=== PATIENT | female | born 2000 | race Hispanic/Latino ===

== ENCOUNTER 2024-02-11 17:03 | Inpatient (IN) | payer BC ==
[2024-02-11 18:24] LABS: Hematocrit 39.9 % (36.0-47.0); Hemoglobin 12.7 g/dL (12.0-16.0); Mean Corpuscular HGB CONC 31.8 g/dL (32.0-36.0); Mean Corpuscular Hemoglobin 25.5 pg (27.0-31.0); Mean Corpuscular Volume 80.1 fL (78.0-98.0); Mean Platelet Volume 11.5 fL (7.4-10.4); Platelet Count 192 10x3/uL (130-400); RBC Distribution Width 16.4 % (11.5-14.5); Red Blood Cell (RBC) Count 4.98 mill/uL (4.20-5.40)
[2024-02-11 18:27] LABS: BHCG - Serum Negative (NEGATIVE); Pregs Control Background? CLEAR/WHITE (CLR/WHITE); Pregs Control Bar Appear? YES (CONTROL BAR)
[2024-02-11 18:33] LABS: ALT (SGPT) 475 U/L (8-55); AST (SGOT) 296 U/L (5-34); Albumin 3.4 g/dL (3.5-5.0); Alkaline Phosphatase 425 U/L (40-110); Anion Gap 14 mmol/L (10-20); BUN (Urea Nitrogen) 5 mg/dL (7.0-18.7); Bilirubin, Total 3.4 mg/dL (0.2-1.2); Calc. Creatinine Clearance 0 mL/min (70-130); Calcium 9.6 mg/dL (7.8-10.44); Carbon Dioxide 21 mmol/L (22-29); Chloride 104 mmol/L (98-107); Estimated GFR 114; Globulin 4.5 g/dL (2.4-3.5); Glucose 95 mg/dL (70-105); Lipase 36 U/L (8-78); Potassium 3.8 mmol/L (3.5-5.1); Protein, Total 7.9 g/dL (6.0-8.3); Sodium 135 mmol/L (136-145)
[2024-02-11 18:42] LABS: Eosinophils 1 % (0-10); Hypochromia SLIGHT = 6-15 cells HPF (0-5); Lymphocytes 36 % (21-51); Monocytes 15 % (0-10); Neutrophil 18 % (42-75); Ovalocytes SLIGHT = 2-5 cells HPF (0-1); Platelet Adequacy Comment Platelets Normal; Poikilocytosis SLIGHT = 6-15 cells HPF (0-5); Polychromasia SLIGHT = 2-3 cells HPF (0-2); Reactive Lymphocytes 31 % (0-10); Smudge Cells 15.9 %; Tear Drops SLIGHT = 2-5 cells HPF (0-1)
[2024-02-11 18:49] LABS: Bacteria/HPF 3+ HPF (None Seen); Bilirubin 2+ (Negative); Blood, Urine 2+ (Negative); CAUTI Indications for Culture Dysuria,urgency,freq; Clarity Turbid (Clear); Glucose, Urine (Dipstick) Normal (Negative); Ketone, Urine 10 mg/dL (Negative); Leukocyte Negative Leu/uL (Negative); Nitrite Negative (Negative); Protein, Urine (Dipstick) 10 mg/dL (Neg-Trace); RBC/HPF 0-3 HPF (0-3); Specific Gravity, Urine 1.016 (1.002-1.036); Urobilinogen 3 mg/dL (Less than 2); pH, Urine 5.5 (5.0-9.0)
[2024-02-11 18:50] LABS: Urine Culture Reflex No No
[2024-02-11] MEDS ORDERED: Sodium Chloride 0.9% 100 ML ONE (19:01)
[2024-02-11] MEDS ORDERED: Ondansetron PF 4 MG/2 ML Vial ONE (19:01)
[2024-02-11] MEDS ORDERED: Morphine 4 MG/ML VIAL ONE (19:01)
[2024-02-11] MEDS ORDERED: Piperacillin/Tazobactam 4.5 GM VIAL ONE (19:01)
[2024-02-11] MEDS ORDERED: Ibuprofen 200 MG TAB ONE (19:58)
[2024-02-11] MEDS ORDERED: Ondansetron ODT 4 MG TAB SL PRN (21:45)
[2024-02-11] MEDS ORDERED: Ondansetron PF 4 MG/2 ML Vial IVP PRN ×2 (21:45→22:50)
[2024-02-11] MEDS ORDERED: Acetaminophen 325 MG TAB PO PRN ×2 (21:45→22:50)
[2024-02-11] MEDS ORDERED: Morphine 4 MG/ML VIAL SLOW IVP PRN (21:45)
[2024-02-11] MEDS ORDERED: hydrALAZINE 20 MG/ML VIAL SLOW IVP PRN (22:50)
[2024-02-11] MEDS ORDERED: Dextrose 5% in Water 1,000 ML IV PRN (22:50)
[2024-02-11] MEDS ORDERED: Ipratropium/Albuterol 3 ML NEB NEB PRN (22:50)
[2024-02-11] MEDS ORDERED: Glucagon 1 MG/ML KIT IM PRN (22:50)
[2024-02-11] MEDS ORDERED: Calcium Carbonate 500 MG ChewTAB PO PRN (22:50)
[2024-02-11] MEDS ORDERED: Dextrose 50% Abboject 50 ML SYRINGE SLOW IVP PRN (22:50)
[2024-02-11] MEDS ORDERED: Morphine 2 MG/ML VIAL SLOW IVP PRN (22:50)
[2024-02-11] MEDS ORDERED: Mag-Al 1200 mg/1200 mg/30 ML UDCUP PO PRN (22:50)
[2024-02-11 23:45] VITALS: BMI 32.7
[2024-02-12] MEDS: D5 1/2 NS w/20 mEq KCL 1,000 ML IV SCH (00:16)
[2024-02-12] MEDS: Piperacillin/Tazobactam 3.375 GM in Sodium Chloride 0.9% 100 ML IVPB SCH (00:16)
[2024-02-12] MEDS: Sodium Chloride 0.9% 1,000 ML IV SCH (00:17)
[2024-02-12 03:44] VITALS: BP 116/74; TEMP 97.8
[2024-02-12 06:01] LABS: Hematocrit 36.5 % (36.0-47.0); Hemoglobin 11.6 g/dL (12.0-16.0); Mean Corpuscular HGB CONC 31.8 g/dL (32.0-36.0); Mean Corpuscular Hemoglobin 25.3 pg (27.0-31.0); Mean Corpuscular Volume 79.5 fL (78.0-98.0); Mean Platelet Volume 11.3 fL (7.4-10.4); Platelet Count 154 10x3/uL (130-400); RBC Distribution Width 16.6 % (11.5-14.5); Red Blood Cell (RBC) Count 4.59 mill/uL (4.20-5.40)
[2024-02-12 06:26] LABS: ALT (SGPT) 369 U/L (8-55); AST (SGOT) 225 U/L (5-34); Albumin 2.8 g/dL (3.5-5.0); Alkaline Phosphatase 365 U/L (40-110); Anion Gap 12 mmol/L (10-20); BUN (Urea Nitrogen) 4 mg/dL (7.0-18.7); Bilirubin, Total 2.9 mg/dL (0.2-1.2); Calc. Creatinine Clearance 166 mL/min (70-130); Calcium 8.6 mg/dL (7.8-10.44); Carbon Dioxide 24 mmol/L (22-29); Chloride 107 mmol/L (98-107); Estimated GFR 126; Globulin 3.8 g/dL (2.4-3.5); Glucose 103 mg/dL (70-105); Lipase 34 U/L (8-78); Potassium 3.6 mmol/L (3.5-5.1); Protein, Total 6.6 g/dL (6.0-8.3); Sodium 139 mmol/L (136-145)
[2024-02-12 06:32] LABS: Band 1 % (5-11); Eosinophils 2 % (0-10); Hypochromia SLIGHT = 6-15 cells HPF (0-5); Large Platelets 2.9 % (0-5); Lymphocytes 36 % (21-51); Metamyelocyte 1 % (0-0); Monocytes 8 % (0-10); Neutrophil 17 % (42-75); Platelet Adequacy Comment Platelets Normal; Polychromasia SLIGHT = 2-3 cells HPF (0-2); Reactive Lymphocytes 35 % (0-10)
[2024-02-12] MEDS ORDERED: EPINEPHrine 1 MG/ML VIAL ONE (07:22)
[2024-02-12] MEDS ORDERED: Iopamidol 30 ML ONE (07:23)
[2024-02-12] MEDS ORDERED: Bupivacaine 0.25% HCL 30 ML VIAL ONE (07:23)
[2024-02-12] MEDS ORDERED: Lidocaine 1% PF 5 ML VIAL ONE (07:41)
[2024-02-12] MEDS ORDERED: Rocuronium Bromide 10 MG/ML (10ML VIAL) ONE (07:41)
[2024-02-12] MEDS ORDERED: fentaNYL PF 100 MCG/2 ML SYRINGE ONE (07:41)
[2024-02-12] MEDS ORDERED: PROPOFOL 20 ML ONE (07:41)
[2024-02-12] MEDS ORDERED: Sodium Chloride 0.9% 100 ML ONE ×2 (07:46→08:16)
[2024-02-12] MEDS ORDERED: Piperacillin/Tazobactam 3.375 GM VIAL ONE (07:46)
[2024-02-12] MEDS ORDERED: Midazolam HCl 2 mg/2 ml Vial ONE (08:09)
[2024-02-12] MEDS ORDERED: cefOXitin 2 GM VIAL ONE (08:15)
[2024-02-12] MEDS ORDERED: Ketorolac Tromethamine 30 MG (1 mL) VIAL ONE (08:46)
[2024-02-12] MEDS ORDERED: Dexamethasone 20 MG/5 ML VIAL ONE (08:46)
[2024-02-12] MEDS ORDERED: Ondansetron PF 4 MG/2 ML Vial ONE (08:46)
[2024-02-12] MEDS ORDERED: SUGAMMADEX SODIUM 200 MG/2 ML VIAL ONE (09:25)
[2024-02-12] MEDS ORDERED: fentaNYL 50 mcg/mL 1 mL Vial ONE (09:52)
[2024-02-12] MEDS: Morphine 4 MG/ML VIAL SLOW IVP PRN (10:41)
[2024-02-12] MEDS: Famotidine/PF 20 mg/2ml Vial SLOW IVP SCH (10:42)
[2024-02-12] MEDS: Famotidine 20 MG TAB PO SCH (11:29)
[2024-02-12] MEDS: HYDROcodone/Acetaminophen 7.5/325 mg Tablet PO PRN (12:24)
[2024-02-12] MEDS: Promethazine HCl 25 MG/ML VIAL IM PRN (12:34)
== END 2024-02-12 17:19 | disposition home or self-care (01) | DRG 419 ==
LOC: ERS 17:03 → SJJU 21:28
PROVIDERS: ADMIT Surgery; ATTEND Surgery
PROC: 0FT44ZZ Resection of Gallbladder, Percutaneous Endoscopic Approach (ICD-10-PCS; principal; 2024-02-12)
PROC: 0FB04ZX Excision of Liver, Percutaneous Endoscopic Approach, Diagnostic (ICD-10-PCS; 2024-02-12)
PROC: BF532Z0 Other Imaging of Gallbladder and Bile Ducts using Fluorescing Agent, Intraoperative (ICD-10-PCS; 2024-02-12)
DX: K81.0 Acute cholecystitis (principal)
CPT/HCPCS: 36415; 47532; 76705; 80053; 81001; 83605; 83690; 84703; 85025; 87040; 96365; 96375; C1889; J0171; J0665; J0694; J1100; J1885; J2250; J2270; J2405; J2543; J2550; J2704; J3010; J3480; J3490; Q9967; S0028